=== PATIENT | male | born 1960 | race Two or more races ===

== ENCOUNTER 2017-04-20 21:34 | Emergency (ER) | payer MEDICAID | END 2017-04-20 22:00 | disposition left against medical advice (07) | LOC: ER 21:35 | DX: M79.89 Other specified soft tissue disorders (principal); E11.9 Type 2 diabetes mellitus without complications; Z53.21 Procedure and treatment not carried out due to patient leaving prior to being seen by health care provider ==

== ENCOUNTER 2017-06-14 22:23 | Inpatient (IN) | payer MEDICAID ==
[~2017-06-14] VITALS: Ht 167.6 cm; Wt 99.8 kg
[2017-06-14 23:27] LABS: BASOPHILS % 1.2 % (0.0-2.0); EOSINOPHILS % 6.7 % (0.0-5.0); HEMOGLOBIN. 15.6 g/dL (14.0-18.0); LYMPHOCYTES % 22.6 % (20.0-50.0); MEAN CORPUSCULAR VOLUME 95.2 fL (80.0-94.0); MONOCYTES % 11.7 % (2.0-8.0); NEUTROPHILS % 57.8 % (40.0-76.0); PLATELET 238 x1000/uL (130-400); RED BLOOD CELL COUNT 4.73 mill/uL (4.7-6.1); RED CELL DISTRIBUTION WIDTH 15.9 % (11.6-14.6)
[2017-06-14 23:36] LABS: INR 1.1; PROTHROMBIN TIME 11.4 sec (9.4-11.6)
[2017-06-14 23:39] LABS: CARBON DIOXIDE 29 mEq/L (21-32); CHLORIDE 106 mEq/L (98-107)
[2017-06-14] MEDS ORDERED: DEXTROSE 10% WATER 500 ML IV ONE (23:45)
[2017-06-15] MEDS ORDERED: DEXTROSE 50% WATER 50ML SYRINGE IV ONE (00:45)
[2017-06-15] MEDS ORDERED: KCL 10MEQ/50ML PREMIX 100 ML IV SCH (01:00)
[2017-06-15] MEDS ORDERED: POTASSIUM CHLORIDE 20MEQ TABLET SR PO ONE (01:00)
[2017-06-15 01:02] LABS: CLARITY URINE CLEAR (CLEAR); COLOR URINE YELLOW (YELLOW); GLUCOSE URINE NEGATIVE (NEGATIVE); KETONES URINE NEGATIVE (NEGATIVE); LEUKOCYTE ESTERASE URINE NEGATIVE (NEGATIVE); NITRITE URINE NEGATIVE (NEGATIVE); OCCULT BLOOD URINE NEGATIVE (NEGATIVE); PH URINE 6.5 (4.5-8.0); PROTEIN URINE 1+ (NEGATIVE); SPECIFIC GRAVITY URINE 1.006 (1.005-1.030)
[2017-06-15 04:00] VITALS: BP 139/83
[2017-06-15 04:58] VITALS: BP 139/83
[2017-06-15] MEDS ORDERED: DOCU250C69 PO (06:12)
[2017-06-15] MEDS ORDERED: SIMV20TA6 PO (06:12)
[2017-06-15] MEDS ORDERED: BUPR100T6 PO (06:12)
[2017-06-15] MEDS ORDERED: DICLOFENAC PO (06:12)
[2017-06-15] MEDS ORDERED: FAMO20TA8 PO (06:12)
[2017-06-15] MEDS ORDERED: METF500T4 PO (06:12)
[2017-06-15] MEDS ORDERED: APIX5TAB PO ×2 (06:12→17:40)
[2017-06-15] MEDS ORDERED: GLIP10TA10 PO (06:12)
[2017-06-15] MEDS ORDERED: LOSA25TA12 PO (06:12)
[2017-06-15 07:41] VITALS: BP 136/80
[2017-06-15] MEDS ORDERED: INFLUENZA VIRUS VACCINE 0.5ML SYR IM ONE (09:00)
[2017-06-15] MEDS ORDERED: DEXTROSE 50% WATER 50ML SYRINGE IV PRN (11:15)
[2017-06-15 11:53] VITALS: BP 135/68
[2017-06-15] MEDS: BLOOD SUGAR DIAGNOSTIC STRIP TEST SCH ×3 (12:10→20:47)
[2017-06-15] MEDS: INSULIN LISPRO 100 UNITS/ML SUBCUT SCH ×3 (12:40→20:49)
[2017-06-15 13:06] LABS: CARBON DIOXIDE 28 mEq/L (21-32); CHLORIDE 107 mEq/L (98-107); CREATINE KINASE 93 IU/L (39-308); TROPONIN I 0.14 ng/mL (0.00-0.04)
[2017-06-15 13:11] LABS: CREATINE KINASE MB FRACTION 2.1 ng/mL (0.5-3.6)
[2017-06-15] MEDS: DEXT 5%/0.45% NACL 1000ML 1,000 ML IV SCH (13:41)
[2017-06-15] MEDS: BUPROPION HCL 100MG TABLET PO SCH ×2 (13:49→16:38)
[2017-06-15] MEDS: LOSARTAN POTASSIUM 25 MG TABLET PO SCH (13:49)
[2017-06-15 16:19] VITALS: BP 142/84
[2017-06-15] MEDS: FAMOTIDINE 20MG TABLET PO SCH (16:44)
[2017-06-15] MEDS: APIXABAN 5 MG TABLET PO SCH (18:36)
[2017-06-15 20:00] VITALS: BP 159/81
[2017-06-15 20:26] LABS: *AMPHETAMINES SCREEN URINE NEGATIVE (NEGATIVE); *BARBITURATES SCREEN URINE NEGATIVE (NEGATIVE); *BENZODIAZEPINES SCREEN URINE NEGATIVE (NEGATIVE); *COCAINE SCREEN URINE NEGATIVE (NEGATIVE); CANNABINOID URINE SCREEN PRESUMTIVE POSITIVE (NEGATIVE); METHADONE URINE SCREEN NEGATIVE (NEGATIVE); OPIATES URINE SCREEN NEGATIVE (NEGATIVE); PHENCYCLIDINE URINE SCREEN NEGATIVE (NEGATIVE)
[2017-06-15 20:41] LABS: CREATINE KINASE MB FRACTION 1.9 ng/mL (0.5-3.6); TROPONIN I 0.12 ng/mL (0.00-0.04)
[2017-06-16] VITALS (8 sets, daily range): BP systolic 138–157; BP diastolic 72–89
[2017-06-16] MEDS: DEXT 5%/0.45% NACL 1000ML 1,000 ML IV SCH ×2 (03:24→14:58)
[2017-06-16] MEDS: BLOOD SUGAR DIAGNOSTIC STRIP TEST SCH ×4 (06:43→21:00)
[2017-06-16] MEDS: INSULIN LISPRO 100 UNITS/ML SUBCUT SCH ×4 (06:46→22:16)
[2017-06-16] MEDS: APIXABAN 5 MG TABLET PO SCH ×2 (07:56→17:47)
[2017-06-16] MEDS ORDERED: APIXABAN 5 MG TABLET PO SCH (09:00)
[2017-06-16] MEDS: FAMOTIDINE 20MG TABLET PO SCH ×2 (09:03→17:47)
[2017-06-16] MEDS: BUPROPION HCL 100MG TABLET PO SCH ×3 (09:03→17:48)
[2017-06-16] MEDS: LOSARTAN POTASSIUM 25 MG TABLET PO SCH (09:03)
[2017-06-16] MEDS: METFORMIN HCL 500MG TABLET PO SCH (17:57)
[2017-06-17] VITALS: BP 138/82
[2017-06-17 04:38] VITALS: BP 151/86
[2017-06-17] MEDS: DEXT 5%/0.45% NACL 1000ML 1,000 ML IV SCH (05:47)
[2017-06-17] MEDS: INSULIN LISPRO 100 UNITS/ML SUBCUT SCH ×2 (05:55→12:07)
[2017-06-17] MEDS: BLOOD SUGAR DIAGNOSTIC STRIP TEST SCH ×2 (05:55→11:44)
[2017-06-17 06:35] LABS: BASOPHILS % 0.7 % (0.0-2.0); EOSINOPHILS % 8.9 % (0.0-5.0); HEMATOCRIT. 43.5 % (42.0-52.0); HEMOGLOBIN. 15.2 g/dL (14.0-18.0); LYMPHOCYTES % 24.2 % (20.0-50.0); MEAN CORPUSCULAR HEMOGLOBIN 33.5 pg (28.0-32.0); MEAN CORPUSCULAR VOLUME 95.9 fL (80.0-94.0); MEAN PLATELET VOLUME 7.8 fl (7.4-10.4); MONOCYTES % 9.8 % (2.0-8.0); NEUTROPHILS % 56.4 % (40.0-76.0); PLATELET 184 x1000/uL (130-400); RED BLOOD CELL COUNT 4.53 mill/uL (4.7-6.1); RED CELL DISTRIBUTION WIDTH 15.6 % (11.6-14.6)
[2017-06-17 07:26] LABS: CARBON DIOXIDE 26 mEq/L (21-32); CHLORIDE 105 mEq/L (98-107)
[2017-06-17 07:46] VITALS: BP 154/90
[2017-06-17] MEDS: FAMOTIDINE 20MG TABLET PO SCH (08:52)
[2017-06-17] MEDS: BUPROPION HCL 100MG TABLET PO SCH ×2 (08:53→14:08)
[2017-06-17] MEDS: LOSARTAN POTASSIUM 25 MG TABLET PO SCH (08:53)
[2017-06-17] MEDS: METFORMIN HCL 500MG TABLET PO SCH (08:53)
[2017-06-17] MEDS: APIXABAN 5 MG TABLET PO SCH (08:53)
[2017-06-17] MEDS ORDERED: CLONIDINE 0.1MG TABLET PO SCH (11:45)
[2017-06-17 11:50] VITALS: BP 164/80
[2017-06-17 14:02] VITALS: BP 117/65
[2017-06-17 16:00] VITALS: BP 123/70
[2017-06-18] MEDS ORDERED: LOSARTAN POTASSIUM 50 MG TABLET PO SCH (09:00)
== END 2017-06-17 16:40 | disposition left against medical advice (07) | DRG 199 ==
LOC: ER 22:37 → 8WST 06-15 00:52 → ENRESERV 06-15 02:01
PROVIDERS: ADMIT Internal Medicine; ATTEND Internal Medicine
DX: I16.0 Hypertensive urgency (principal); E11.649 Type 2 diabetes mellitus with hypoglycemia without coma; I82.412 Acute embolism and thrombosis of left femoral vein; I69.354 Hemiplegia and hemiparesis following cerebral infarction affecting left non-dominant side; I10 Essential (primary) hypertension; J44.9 Chronic obstructive pulmonary disease, unspecified; E78.5 Hyperlipidemia, unspecified; E87.6 Hypokalemia; E78.00 Pure hypercholesterolemia, unspecified; F12.90 Cannabis use, unspecified, uncomplicated; F17.210 Nicotine dependence, cigarettes, uncomplicated; I82.432 Acute embolism and thrombosis of left popliteal vein; Z53.21 Procedure and treatment not carried out due to patient leaving prior to being seen by health care provider; Z79.01 Long term (current) use of anticoagulants; Z79.4 Long term (current) use of insulin; I25.2 Old myocardial infarction
CPT/HCPCS: 36415; 80048; 80053; 80305; 81001; 82533; 82550; 82553; 82962; 84443; 84484; 85025; 85610; 90686; 93005; 93970; 93971; 96361; 96374; 99291; J1815; J3480; J3490

== ENCOUNTER 2018-07-09 18:19 | Emergency (ER) | payer MEDICAID, MEDICARE, OTHER ==
[~2018-07-09] VITALS: Ht 175.3 cm; Wt 86.0 kg
[~2018-07-09 18:19] MED LIST: APIX5TAB PO; BUPR100T6 PO; DICLOFENAC PO; DOCU250C69 PO; FAMO20TA8 PO; GLIP10TA10 PO; LOSA25TA12 PO; METF-414 PO; SIMV20TA6 PO
[2018-07-09] MEDS ORDERED: ONDANSETRON 4MG ODT PO ONE (20:00)
[2018-07-09] MEDS ORDERED: KETOROLAC 60MG/2ML VIAL IM ONE (20:00)
[2018-07-09] MEDS ORDERED: BACITRACIN ZINC OINT UDPKT TOP ONE (20:00)
[2018-07-09] MEDS ORDERED: TETANUS, DIPHTHERIA, PERTUSSIS VAC/PF 0.5ML (>7YR OLD) IM ONE (20:00)
[2018-07-09] MEDS ORDERED: MORPHINE SULFATE 10 MG/ML CPJ IM ONE (20:00)
[2018-07-10 01:15] VITALS: BP 119/72
== END 2018-07-10 01:41 | disposition home or self-care (01) ==
LOC: ER 18:19
DX: S39.012A Strain of muscle, fascia and tendon of lower back, initial encounter (principal); S80.02XA Contusion of left knee, initial encounter; S60.222A Contusion of left hand, initial encounter; S60.419A Abrasion of unspecified finger, initial encounter; V00.811A Fall from moving wheelchair (powered), initial encounter; Y93.89 Activity, other specified; Y92.521 Bus station as the place of occurrence of the external cause; E11.9 Type 2 diabetes mellitus without complications; I69.354 Hemiplegia and hemiparesis following cerebral infarction affecting left non-dominant side; G40.909 Epilepsy, unspecified, not intractable, without status epilepticus; Z23 Encounter for immunization
CPT/HCPCS: 71045; 72100; 73130; 73560; 90471; 90715; 96372; 99283; J1885; J2270; Q0162

== ENCOUNTER 2019-03-09 06:53 | Emergency (ER) | payer MEDICARE ==
[~2019-03-09] VITALS: Ht 170.2 cm; Wt 82.0 kg
[~2019-03-09 06:53] MED LIST changes: -LOSA25TA12 PO; +LOSA25TA26 PO
[2019-03-09 08:19] LABS: BASOPHILS % 0.9 % (0.0-2.0); EOSINOPHILS % 6.2 % (0.0-5.0); HEMATOCRIT. 48.5 % (42.0-52.0); HEMOGLOBIN. 16.5 g/dL (14.0-18.0); LYMPHOCYTES % 11.6 % (20.0-50.0); MEAN CORPUSCULAR HEMOGLOBIN 33.4 pg (28.0-32.0); MEAN CORPUSCULAR VOLUME 98.1 fL (80.0-94.0); MEAN PLATELET VOLUME 7.4 fl (7.4-10.4); MONOCYTES % 10.4 % (2.0-8.0); NEUTROPHILS % 70.9 % (40.0-76.0); PLATELET 234 x1000/uL (130-400); RED BLOOD CELL COUNT 4.95 mill/uL (4.7-6.1); RED CELL DISTRIBUTION WIDTH 14.3 % (11.6-14.6)
[2019-03-09 08:20] LABS: CHLORIDE 107 mEq/L (98-107)
[2019-03-09 10:08] VITALS: BP 160/80
== END 2019-03-09 10:45 | disposition home or self-care (01) ==
LOC: ER 06:53
DX: E11.649 Type 2 diabetes mellitus with hypoglycemia without coma (principal); Z86.73 Personal history of transient ischemic attack (TIA), and cerebral infarction without residual deficits; Z79.899 Other long term (current) drug therapy
CPT/HCPCS: 36415; 71045; 80053; 82962; 84484; 85025; 93005; 99284; Z7610

== ENCOUNTER 2019-06-10 11:03 | Emergency (ER) | payer MEDICARE ==
[~2019-06-10] VITALS: Ht 170.2 cm; Wt 95.0 kg
[2019-06-10] MEDS ORDERED: FAMOTIDINE 20MG/2ML VIAL IV STA (11:47)
[2019-06-10] MEDS ORDERED: ONDANSETRON HCL 4MG/2ML INJ IV STA (11:47)
[2019-06-10] MEDS ORDERED: MORPHINE SULFATE 4 MG/ML CPJ (NOT FOR IM USE) IV STA (11:47)
[2019-06-10] MEDS ORDERED: SODIUM CHLORIDE 0.9% 1,000 ML IV ONE (11:47)
[2019-06-10 12:33] LABS: HEMATOCRIT. 51.1 % (42.0-52.0); HEMOGLOBIN. 17.8 g/dL (14.0-18.0); MEAN CORPUSCULAR HEMOGLOBIN 33.2 pg (28.0-32.0); MEAN CORPUSCULAR VOLUME 95.4 fL (80.0-94.0); PLATELET 267 x1000/uL (130-400); RED BLOOD CELL COUNT 5.35 mill/uL (4.7-6.1); RED CELL DISTRIBUTION WIDTH 13.7 % (11.6-14.6)
[2019-06-10 12:36] LABS: INR 1.1; PROTHROMBIN TIME 11.4 sec (9.6-11.0)
[2019-06-10 12:37] LABS: CHLORIDE 97 mEq/L (98-107)
[2019-06-10 12:51] LABS: CLARITY URINE CLEAR (CLEAR); COLOR URINE ORANGE (YELLOW); KETONES URINE 1+ (NEGATIVE); LEUKOCYTE ESTERASE URINE TRACE (NEGATIVE); NITRITE URINE NEGATIVE (NEGATIVE); OCCULT BLOOD URINE 1+ (NEGATIVE); PROTEIN URINE 3+ (NEGATIVE); SPECIFIC GRAVITY URINE 1.025 (1.005-1.030)
[2019-06-10] MEDS ORDERED: PIPERACILLIN/TAZ 3.375G PREMIX 50 ML IV ONE (13:30)
[2019-06-10 13:31] LABS: PLATELET ESTIMATE NORMAL
[2019-06-10] MEDS ORDERED: MORPHINE SULFATE 2 MG/ML CPJ (NOT FOR IM USE) IV ONE (14:30)
[2019-06-10] MEDS ORDERED: IOHEXOL-300 100 ML BOTTLE ONE (14:52)
[2019-06-10] MEDS ORDERED: PIPERACILLIN/TAZOBACTAM 3.375 G in DEXT 5% WATER 100 ML IV SCH (15:00)
[2019-06-10] MEDS ORDERED: HYDRALAZINE 20MG/ML VIAL IV ONE (16:15)
[2019-06-10 21:31] VITALS: BP 15/85
== END 2019-06-10 22:00 | disposition home or self-care (01) ==
LOC: ER 11:03 → EDBEDREQ 14:00 → CANBEDREQ 17:38 → ER 22:00 → SUPCPDRO 06-11 10:37
DX: A41.9 Sepsis, unspecified organism (principal); K81.0 Acute cholecystitis; E87.1 Hypo-osmolality and hyponatremia; E87.6 Hypokalemia; E11.9 Type 2 diabetes mellitus without complications; I10 Essential (primary) hypertension; E66.9 Obesity, unspecified; Z68.32 Body mass index [BMI] 32.0-32.9, adult; I69.354 Hemiplegia and hemiparesis following cerebral infarction affecting left non-dominant side; Z86.718 Personal history of other venous thrombosis and embolism; Z79.01 Long term (current) use of anticoagulants; Z79.899 Other long term (current) drug therapy
CPT/HCPCS: 36415; 71045; 74177; 76705; 80053; 81003; 83605; 83690; 85025; 85610; 93005; 96361; 96365; 96366; 96375; 99291; J0360; J2270; J2405; J2543; J3490; J7030; Q9967; Z7610

== ENCOUNTER 2019-07-24 20:27 | Emergency (ER) | payer MEDICARE ==
[~2019-07-24] VITALS: Ht 167.6 cm; Wt 73.0 kg
[2019-07-24] MEDS ORDERED: IBUPROFEN 600MG TABLET PO ONE (21:30)
[2019-07-24 22:49] LABS: BASOPHILS % 0.8 % (0.0-2.0); EOSINOPHILS % 11.9 % (0.0-5.0); HEMATOCRIT. 44.7 % (42.0-52.0); HEMOGLOBIN. 15.2 g/dL (14.0-18.0); LYMPHOCYTES % 26.8 % (20.0-50.0); MEAN CORPUSCULAR HEMOGLOBIN 32.8 pg (28.0-32.0); MEAN CORPUSCULAR VOLUME 96.6 fL (80.0-94.0); MEAN PLATELET VOLUME 7.1 fl (7.4-10.4); MONOCYTES % 6.8 % (2.0-8.0); NEUTROPHILS % 53.7 % (40.0-76.0); PLATELET 217 x1000/uL (130-400); RED BLOOD CELL COUNT 4.63 mill/uL (4.7-6.1); RED CELL DISTRIBUTION WIDTH 15.7 % (11.6-14.6)
[2019-07-24 22:54] LABS: CHLORIDE 101 mEq/L (98-107)
[2019-07-24 23:06] LABS: ETHANOL BLOOD 286 mg/dL
[2019-07-24] MEDS ORDERED: HYDROCODONE/ACETAMINOPHEN 5/325MG TABLET PO ONE (23:30)
[2019-07-25 00:40] VITALS: BP 131/71
== END 2019-07-25 01:00 | disposition home or self-care (01) ==
LOC: ER 20:27
DX: S43.102A Unspecified dislocation of left acromioclavicular joint, initial encounter (principal); W05.0XXA Fall from non-moving wheelchair, initial encounter; Y93.89 Activity, other specified; Y92.098 Other place in other non-institutional residence as the place of occurrence of the external cause; F10.129 Alcohol abuse with intoxication, unspecified; Y90.8 Blood alcohol level of 240 mg/100 ml or more
CPT/HCPCS: 36415; 71045; 73030; 80053; 80320; 85025; 99284; Z7610; G0480

== ENCOUNTER 2020-12-11 14:44 | Emergency (ER) | payer MEDICARE ==
[~2020-12-11] VITALS: Ht 170.2 cm; Wt 70.0 kg
[~2020-12-11 14:44] MED LIST changes: +SIMV-43 PO; -SIMV20TA6 PO
[2020-12-11] MEDS ORDERED: ACETAMINOPHEN WITH CODEINE 300/30MG TABLET PO NR (15:45)
[2020-12-11] MEDS ORDERED: MORPHINE SULFATE 10 MG/ML CPJ IM ONE ×2 (17:30→21:45)
[2020-12-11] MEDS ORDERED: MORPHINE SULFATE 4 MG/ML CPJ (NOT FOR IM USE) IV NR (17:45)
[2020-12-11 17:48] LABS: HEMATOCRIT 44.7 % (42.0-52.0); HEMOGLOBIN 15.5 g/dL (14.0-18.0); MEAN CORPUSCULAR HEMOGLOBIN 34.1 pg (28.0-32.0); MEAN CORPUSCULAR VOLUME 98.1 fL (80.0-94.0); PLATELET 212 x1000/uL (130-400); RED BLOOD CELL COUNT 4.56 mill/uL (4.7-6.1); RED CELL DISTRIBUTION WIDTH 13.8 % (11.6-14.6)
[2020-12-11 17:56] LABS: CHLORIDE 101 mEq/L (98-107)
[2020-12-11 18:06] LABS: CREATINE KINASE 110 IU/L (39-308)
[2020-12-11] MEDS ORDERED: BUPIVACAINE HCL/PF 0.25% (2.5MG/ML) 10ML INFIL ONE (20:15)
[2020-12-12 03:50] VITALS: BP 133/85
[2020-12-12 04:01] LABS: CLARITY URINE CLOUDY (CLEAR); COLOR URINE ORANGE (YELLOW); KETONES URINE TRACE (NEGATIVE); LEUKOCYTE ESTERASE URINE 3+ (NEGATIVE); NITRITE URINE POSITIVE (NEGATIVE); OCCULT BLOOD URINE 2+ (NEGATIVE); PROTEIN URINE 1+ (NEGATIVE); SPECIFIC GRAVITY URINE 1.016 (1.005-1.030)
== END 2020-12-12 04:15 | disposition short-term general hospital (02) ==
LOC: ER 14:44
DX: S42.392A Other fracture of shaft of left humerus, initial encounter for closed fracture (principal); S46.812A Strain of other muscles, fascia and tendons at shoulder and upper arm level, left arm, initial encounter; S20.212A Contusion of left front wall of thorax, initial encounter; S50.02XA Contusion of left elbow, initial encounter; W22.8XXA Striking against or struck by other objects, initial encounter; W01.198A Fall on same level from slipping, tripping and stumbling with subsequent striking against other object, initial encounter; Y93.89 Activity, other specified; Y92.015 Private garage of single-family (private) house as the place of occurrence of the external cause; I10 Essential (primary) hypertension; E11.9 Type 2 diabetes mellitus without complications; I69.30 Unspecified sequelae of cerebral infarction; Z79.01 Long term (current) use of anticoagulants
CPT/HCPCS: 29105; 36415; 70450; 71101; 73030; 73060; 73080; 80053; 81003; 82550; 85027; 87077; 87086; 87186; 96374; 99285; J2270; J3490

== ENCOUNTER 2023-05-23 13:13 | Emergency (ER) | payer MEDICAID, MEDICARE ==
[~2023-05-23] VITALS: Ht 167.6 cm; Wt 64.0 kg
[~2023-05-23 13:13] MED LIST changes: +BUPR-113 PO; -BUPR100T6 PO
[2023-05-23 13:19] VITALS: BP 110/63; PULSE 91; RESP 16; TEMP 98.4; O2SAT 100
[2023-05-23] MEDS ORDERED: TETANUS, DIPHTHERIA, PERTUSSIS VAC/PF 0.5ML (>10YR OLD) IM ONE ×2 (15:30→21:30)
[2023-05-23 16:17] LABS: BASOPHILS % 0.6 % (0.0-2.0); EOSINOPHILS % 7.5 % (0.0-5.0); HEMATOCRIT. 42.3 % (42.0-52.0); HEMOGLOBIN. 14.2 g/dL (14.0-18.0); LYMPHOCYTES % 11.8 % (20.0-50.0); MEAN CORPUSCULAR HEMOGLOBIN 32.2 pg (28.0-32.0); MEAN CORPUSCULAR HGB CONC 33.6 g/dL (31.0-37.0); MEAN CORPUSCULAR VOLUME 95.7 fL (80.0-94.0); MONOCYTES % 10.3 % (2.0-8.0); NEUTROPHILS % 69.8 % (40.0-76.0); PLATELET 281 x1000/uL (130-400); RED BLOOD CELL COUNT 4.41 mill/uL (4.7-6.1); RED CELL DISTRIBUTION WIDTH 14.2 % (11.6-14.6); WHITE BLOOD COUNT 11.2 x1000/uL (4.5-11.0)
[2023-05-23 16:18] LABS: CHLORIDE 101 mEq/L (98-107); INDEX HEMOLYSI 1 (1-3); INDEX ICTERIC 1 (1-4); INDEX LIPEMIC 1 (1-3); POTASSIUM 4.4 mEq/L (3.5-5.1); SODIUM 134 mEq/L (136-145)
[2023-05-23 16:27] LABS: ALANINE AMINOTRANSFERASE 28 IU/L (13-61); ALBUMIN 2.6 g/dL (3.4-5.0); ASPARTATE AMINOTRANSFERASE 48 IU/L (15-37); BILIRUBIN TOTAL 1.2 mg/dL (0.1-1.0); CALCIUM 8.2 mg/dL (8.5-10.1); CARBON DIOXIDE 25 mEq/L (21-32); CREATINE KINASE 192 IU/L (39-308); CREATININE 0.8 mg/dL (0.6-1.3); ETHANOL BLOOD < 10 mg/dL (<10); GLUCOSE 99 mg/dL (70-105); PROTEIN TOTAL 7.1 g/dL (6.0-8.3); UREA NITROGEN BLOOD 7 mg/dL (7-21)
== END 2023-05-23 20:49 | disposition home or self-care (01) ==
LOC: ER 13:13
DX: S00.81XA Abrasion of other part of head, initial encounter (principal); E11.9 Type 2 diabetes mellitus without complications; I10 Essential (primary) hypertension; Z86.73 Personal history of transient ischemic attack (TIA), and cerebral infarction without residual deficits; Z79.899 Other long term (current) drug therapy; W07.XXXA Fall from chair, initial encounter; Y93.89 Activity, other specified; Y92.89 Other specified places as the place of occurrence of the external cause; Y99.8 Other external cause status
CPT/HCPCS: 80053; 80320; 82550; 85025; 36415; 71045; 70450; 70486; 90715; 90471; 99285; Z7610; G0480

== ENCOUNTER 2023-11-29 12:15 | Inpatient (IN) | payer MEDICAID ==
[~2023-11-29] VITALS: Ht 167.6 cm; Wt 81.6 kg
[~2023-11-29 12:15] MED LIST changes: +ALBU2.5V13 NEB; -BUPR-113 PO; +BUPR100T13 PO; -DICLOFENAC PO; -GLIP10TA10 PO; +LEVO750T68 MT; -LOSA25TA26 PO; +LOSA50TA41 PO; +MIRT-89 PO
[2023-11-29] MEDS: SODIUM CHLORIDE 0.9% 1,000 ML IV ONE (12:59)
[2023-11-29] MEDS: PIPERACILLIN/TAZO 3.375G/50ML 50 ML IV ONE (13:00)
[2023-11-29 13:04] LABS: BASOPHILS % 0.6 % (0.0-2.0); EOSINOPHILS % 10.7 % (0.0-5.0); HEMATOCRIT. 41.4 % (42.0-52.0); HEMOGLOBIN. 14.1 g/dL (14.0-18.0); LYMPHOCYTES % 18.6 % (20.0-50.0); MEAN CORPUSCULAR HEMOGLOBIN 32.1 pg (28.0-32.0); MEAN CORPUSCULAR VOLUME 94.3 fL (80.0-94.0); MONOCYTES % 10.8 % (2.0-8.0); NEUTROPHILS % 59.3 % (40.0-76.0); PLATELET 321 x1000/uL (130-400); RED BLOOD CELL COUNT 4.38 mill/uL (4.7-6.1); RED CELL DISTRIBUTION WIDTH 14.1 % (11.6-14.6); WHITE BLOOD COUNT 8.8 x1000/uL (4.5-11.0)
[2023-11-29 13:19] LABS: ALANINE AMINOTRANSFERASE 15 IU/L (10-49); ALBUMIN 3.8 g/dL (3.2-4.8); ASPARTATE AMINOTRANSFERASE 38 IU/L (<34); BILIRUBIN TOTAL 0.6 mg/dL (0.1-1.0); CALCIUM 8.8 mg/dL (8.7-10.4); CARBON DIOXIDE 28 mEq/L (21-32); CHLORIDE 104 mEq/L (98-107); CREATININE 1.3 mg/dL (0.6-1.3); GLUCOSE 148 mg/dL (70-105); POTASSIUM 4.6 mEq/L (3.5-5.1); PROTEIN TOTAL 7.5 g/dL (6.0-8.3); SODIUM 135 mEq/L (136-145); UREA NITROGEN BLOOD 11 mg/dL (9-23)
[2023-11-29 20:00] VITALS: BP 160/78; PULSE 109; RESP 20; TEMP 94.6
[2023-11-29] MEDS ORDERED: CLONIDINE 0.1MG TABLET PO PRN (20:15)
[2023-11-29] MEDS ORDERED: DEXTROSE 50% WATER 50ML SYRINGE IV PRN (20:15)
[2023-11-29] MEDS ORDERED: VANCOMYCIN 1G PREMIX 200 ML IV SCH (20:15)
[2023-11-29] MEDS ORDERED: ONDANSETRON HCL 4MG/2ML INJ IV PRN (20:15)
[2023-11-29] MEDS ORDERED: GUAIFENESIN 200MG/10ML SUGAR FREE UDC PO PRN (20:15)
[2023-11-29] MEDS ORDERED: ACETAMINOPHEN 325MG TABLET PO PRN (20:15)
[2023-11-29] MEDS ORDERED: MAGNESIUM/ALUMINUM HYDROXIDE/SIMETHICONE 30ML UDC PO PRN (20:15)
[2023-11-29] MEDS ORDERED: IPRATROPIUM/ALBUTEROL 0.5-3(2.5)MG/3ML NEB NEB PRN (20:15)
[2023-11-29] MEDS: INSULIN LISPRO 100 UNITS/ML SUBCUT SCH (21:00)
[2023-11-29] MEDS: VANCOMYCIN 1.5GM/250ML IV SCH (21:00)
[2023-11-29] MEDS: BLOOD SUGAR DIAGNOSTIC STRIP TEST SCH (21:48)
[2023-11-29] MEDS: APIXABAN 5 MG TABLET PO SCH (21:48)
[2023-11-29] MEDS: ATORVASTATIN CALCIUM 20MG TABLET PO SCH (21:48)
[2023-11-29] MEDS: FAMOTIDINE 20MG TABLET PO SCH (21:48)
[2023-11-29] MEDS: MIRTAZAPINE 15MG TABLET PO SCH (21:48)
[2023-11-29] MEDS: SODIUM CHLORIDE 0.9% INJ 3ML FLUSH IVF SCH (22:06)
[2023-11-29] MEDS: BUPROPION HCL 75MG TABLET PO SCH (22:24)
[2023-11-29] MEDS: PIPERACILLIN/TAZO 3.375G/50ML 50 ML IV SCH (22:24)
[2023-11-29 23:34] VITALS: BP 160/78; PULSE 109; RESP 20; TEMP 94.6
[2023-11-30] VITALS: BP 136/66; PULSE 86; RESP 18; TEMP 97.7
[2023-11-30 08:00] VITALS: BP 137/70; PULSE 64; RESP 20; TEMP 98.5
[2023-11-30] MEDS: DOCUSATE SODIUM 250MG CAPSULE PO SCH (08:52)
[2023-11-30] MEDS: LOSARTAN 50 MG TABLET PO SCH (08:53)
[2023-11-30] MEDS: VANCOMYCIN 750MG/150ML IV SCH (10:00)
[2023-11-30 12:00] VITALS: BP 130/64; PULSE 68; RESP 20; TEMP 98.4
[2023-11-30] MEDS: SODIUM HYPOCHLORITE SOLUTION (0.5%)FULL STRENGTH TOP SCH (13:00)
[2023-11-30 16:00] VITALS: BP 144/70; PULSE 61; RESP 20; TEMP 97.7
[2023-11-30 20:00] VITALS: BP 120/60; PULSE 68; RESP 18; TEMP 98.6
[2023-12-01] VITALS: BP 96/50; PULSE 76; RESP 18; TEMP 98.6
[2023-12-01 04:00] VITALS: BP 104/53; PULSE 65; RESP 18; TEMP 98.1
[2023-12-01 07:24] LABS: CALCIUM 8.4 mg/dL (8.7-10.4); CARBON DIOXIDE 23 mEq/L (21-32); CHLORIDE 112 mEq/L (98-107); CREATINE KINASE 21 IU/L (46-171); CREATININE 1.1 mg/dL (0.6-1.3); GLUCOSE 112 mg/dL (70-105); POTASSIUM 3.6 mEq/L (3.5-5.1); SODIUM 140 mEq/L (136-145); UREA NITROGEN BLOOD 13 mg/dL (9-23)
[2023-12-01 08:00] VITALS: BP 136/62; PULSE 62; RESP 20; TEMP 98.2
[2023-12-01 12:01] VITALS: BP 127/62; PULSE 62; RESP 18; TEMP 98
[2023-12-01 16:25] VITALS: BP 147/67; PULSE 62; RESP 18; TEMP 98.1
[2023-12-01 20:00] VITALS: BP 120/69; PULSE 69; RESP 18; TEMP 97.3
[2023-12-01] MEDS: ZOLPIDEM TARTRATE 5MG TABLET PO PRN (22:11)
[2023-12-02] VITALS: BP 137/67; PULSE 64; RESP 19; TEMP 98
[2023-12-02 04:00] VITALS: BP 136/62; PULSE 68; RESP 19; TEMP 97.4
[2023-12-02 08:02] VITALS: BP 119/63; PULSE 60; RESP 18; TEMP 98.1
[2023-12-02] MEDS ORDERED: LIDOCAINE HCL 1% 10 MG/ML 10ML VIAL ONE (08:08)
[2023-12-02] MEDS ORDERED: POLYMYXIN B SULFATE 500000 UNITS/VIAL ONE (08:08)
[2023-12-02] MEDS ORDERED: BUPIVACAINE HCL/PF 0.5% (5MG/ML) 10ML ONE (08:08)
[2023-12-02] MEDS ORDERED: VANCOMYCIN HCL 1 GM/VIAL ONE (08:43)
[2023-12-02] MEDS ORDERED: MIDAZOLAM HCL 2 MG/2 ML VIAL ONE (09:51)
[2023-12-02] MEDS ORDERED: PROPOFOL 200MG/20ML VIAL IV ONE (09:51)
[2023-12-02] MEDS ORDERED: FENTANYL CITRATE/PF 50MCG/ML 2ML VIAL ONE (09:51)
[2023-12-02] MEDS ORDERED: HYDROCODONE/ACETAMINOPHEN 10/325MG TABLET PO PRN (10:00)
[2023-12-02] MEDS ORDERED: NALOXONE HCL 0.4MG/ML VIAL IV PRN (10:00)
[2023-12-02] MEDS ORDERED: HYDROCODONE/ACETAMINOPHEN 5/325MG TABLET PO PRN (10:00)
[2023-12-02] MEDS ORDERED: MEPERIDINE HCL/PF 25MG/ML CPJ IV PRN (10:30)
[2023-12-02] MEDS ORDERED: ONDANSETRON HCL 4MG/2ML INJ IV PRN (10:30)
[2023-12-02] MEDS ORDERED: HYDROMORPHONE HCL/PF 2MG/ML CPJ IV PRN (10:30)
[2023-12-02] MEDS ORDERED: LABETALOL 5MG/ML SYR 20 MG/4 ML SYRINGE IV PRN (10:30)
[2023-12-02 13:00] VITALS: BP 125/38; PULSE 68; RESP 18; TEMP 98.2
[2023-12-02 16:00] VITALS: BP 128/43; PULSE 69; RESP 18; TEMP 98.1
[2023-12-02 20:00] VITALS: BP 119/62; PULSE 71; RESP 18; TEMP 97.7
[2023-12-03] VITALS: BP 112/48; PULSE 65; RESP 20; TEMP 97.9
[2023-12-03 04:00] VITALS: BP 100/51; PULSE 63; RESP 20; TEMP 97.9
[2023-12-03 08:00] VITALS: BP 118/67; PULSE 63; RESP 20; TEMP 98.2
[2023-12-03 12:00] VITALS: BP 120/70; PULSE 70; RESP 20; TEMP 98.4
[2023-12-03 16:00] VITALS: BP 123/63; PULSE 64; RESP 21; TEMP 98.2
[2023-12-03 20:00] VITALS: BP 124/62; PULSE 78; RESP 20; TEMP 98
[2023-12-04] VITALS: BP 112/55; PULSE 65; RESP 20; TEMP 97.8
[2023-12-04] MEDS: CEFAZOLIN 2GM/100ML 100 ML IV SCH (02:59)
[2023-12-04 04:00] VITALS: BP 118/65; PULSE 67; RESP 20; TEMP 97.9
[2023-12-04 07:29] LABS: CALCIUM 8.5 mg/dL (8.7-10.4); CARBON DIOXIDE 23 mEq/L (21-32); CHLORIDE 111 mEq/L (98-107); CREATININE 1.3 mg/dL (0.6-1.3); GLUCOSE 78 mg/dL (70-105); POTASSIUM 3.5 mEq/L (3.5-5.1); SODIUM 139 mEq/L (136-145); UREA NITROGEN BLOOD 11 mg/dL (9-23)
[2023-12-04 08:00] VITALS: BP 143/67; PULSE 63; RESP 18; TEMP 98
[2023-12-04 12:00] VITALS: BP 112/56; PULSE 65; RESP 18; TEMP 97
[2023-12-04 16:00] VITALS: BP 146/69; PULSE 62; RESP 20; TEMP 98
[2023-12-04 20:00] VITALS: BP_SYST 152; BP_SYST 166; BP_DIAS 62; BP_DIAS 85; PULSE 64; PULSE 92; RESP 18; TEMP 97.2; TEMP 97.4
[2023-12-05 04:00] VITALS: BP 140/7; PULSE 62; RESP 16; TEMP 97.9
[2023-12-05 08:00] VITALS: BP 153/72; PULSE 61; RESP 19; TEMP 97.7
[2023-12-05 12:00] VITALS: BP 138/51; PULSE 63; RESP 20; TEMP 98.1
[2023-12-05 16:00] VITALS: BP 153/80; PULSE 67; RESP 20; TEMP 98.1
[2023-12-05 20:00] VITALS: BP 152/66; PULSE 97; RESP 18; TEMP 97.5
[2023-12-05] MEDS: BUPROPION HCL 150MG SR TABLET PO SCH (20:47)
[2023-12-06] VITALS: BP 129/52; PULSE 92; RESP 18; TEMP 95.4
[2023-12-06 04:00] VITALS: BP 152/46; PULSE 81; RESP 18; TEMP 97.9
[2023-12-06 08:00] VITALS: BP_SYST 147; BP_SYST 175; BP_DIAS 75; BP_DIAS 80; PULSE 77; PULSE 94; RESP 20; RESP 21; TEMP 97.3; TEMP 98.6
[2023-12-06 12:00] VITALS: BP 140/67; PULSE 87; RESP 20; TEMP 98.7
[2023-12-06 16:00] VITALS: BP 146/67; PULSE 76; RESP 18; TEMP 98.5
[2023-12-06 20:00] VITALS: BP 159/40; PULSE 87; RESP 18; TEMP 97.2
[2023-12-07] VITALS: BP 128/64; PULSE 85; RESP 18; TEMP 97.2
[2023-12-07 04:00] VITALS: BP 143/37; PULSE 81; RESP 18; TEMP 97.2
[2023-12-07 08:00] VITALS: BP 150/64; PULSE 65; RESP 18; TEMP 97.7
[2023-12-07 12:00] VITALS: BP 148/70; PULSE 66; RESP 18; TEMP 97.5
[2023-12-07 16:00] VITALS: BP 147/74; PULSE 65; RESP 18; TEMP 97.6
[2023-12-07 20:00] VITALS: BP 144/73; PULSE 68; RESP 18; TEMP 97.9
[2023-12-08] VITALS: BP 110/57; PULSE 66; RESP 18; TEMP 97.7
[2023-12-08 04:00] VITALS: BP 105/53; PULSE 82; RESP 18; TEMP 97.8
[2023-12-08 08:00] VITALS: BP 125/49; PULSE 60; RESP 19; TEMP 97.7
[2023-12-08 12:00] VITALS: BP 125/62; PULSE 60; RESP 18; TEMP 97.3
[2023-12-08 16:00] VITALS: BP 113/62; PULSE 62; RESP 19; TEMP 98.1
[2023-12-08] MEDS: ACETAMINOPHEN 325MG TABLET PO PRN (19:30)
[2023-12-08 20:00] VITALS: BP 149/38; PULSE 67; RESP 18; TEMP 98.1
[2023-12-09] VITALS: BP 119/64; PULSE 65; RESP 18; TEMP 97.5
[2023-12-09 04:00] VITALS: BP 132/64; PULSE 62; RESP 18; TEMP 97.3
[2023-12-09 08:00] VITALS: BP 140/55; PULSE 60; RESP 20; TEMP 97.9
[2023-12-09 12:14] VITALS: BP 141/81; PULSE 58; RESP 18; TEMP 98.1
[2023-12-09 16:05] VITALS: BP 157/80; PULSE 67; RESP 18; TEMP 98
[2023-12-09 20:00] VITALS: BP 131/65; PULSE 66; RESP 16; TEMP 96.8
[2023-12-10 04:00] VITALS: BP 128/60; PULSE 52; RESP 16; TEMP 96.6
[2023-12-10 08:00] VITALS: BP 122/61; PULSE 64; RESP 18; TEMP 98
[2023-12-10 12:25] VITALS: BP 127/61; PULSE 65; RESP 20; TEMP 98
[2023-12-10 16:29] VITALS: BP 140/77; PULSE 66; RESP 18; TEMP 97.9
[2023-12-10 16:44] VITALS: BP 140/71; PULSE 66; TEMP 97.9; O2SAT 100
== END 2023-12-10 19:29 | disposition home health service (06) | DRG 314 ==
LOC: ER 13:49 → EDBEDREQ 15:58 → 6WST 17:07
PROVIDERS: ADMIT Internal Medicine; ATTEND Internal Medicine
PROC: 0Y6Q0Z3 Detachment at Left 1st Toe, Low, Open Approach (ICD-10-PCS; principal; 2023-12-02)
PROC: 0SQQ0ZZ Repair Left Toe Phalangeal Joint, Open Approach (ICD-10-PCS; 2023-12-02)
PROC: 0KBW0ZZ Excision of Left Foot Muscle, Open Approach (ICD-10-PCS; 2023-12-02)
DX: E11.69 Type 2 diabetes mellitus with other specified complication (principal); M86.172 Other acute osteomyelitis, left ankle and foot; I69.354 Hemiplegia and hemiparesis following cerebral infarction affecting left non-dominant side; L97.529 Non-pressure chronic ulcer of other part of left foot with unspecified severity; E11.51 Type 2 diabetes mellitus with diabetic peripheral angiopathy without gangrene; E11.621 Type 2 diabetes mellitus with foot ulcer; I10 Essential (primary) hypertension; L08.9 Local infection of the skin and subcutaneous tissue, unspecified; Z86.718 Personal history of other venous thrombosis and embolism; E78.00 Pure hypercholesterolemia, unspecified; M84.475A Pathological fracture, left foot, initial encounter for fracture; S90.415A Abrasion, left lesser toe(s), initial encounter; X58.XXXA Exposure to other specified factors, initial encounter; Y93.89 Activity, other specified; Y92.89 Other specified places as the place of occurrence of the external cause; Y99.8 Other external cause status
CPT/HCPCS: 36415; 73630; 73721; 80048; 80053; 80202; 82550; 82962; 83036; 83605; 83880; 84145; 85025; 85651; 87070; 87075; 87077; 87186; 88304; 88311; 93923; 97162; 97166; 97530; 99285; J0690; J1815; J2250; J2543; J2704; J3010; J3370; J3490; J7030

== ENCOUNTER 2024-10-21 09:36 | Emergency (ER) | payer MEDICAID ==
[~2024-10-21] VITALS: Ht 167.6 cm; Wt 74.0 kg
[~2024-10-21 09:36] MED LIST changes: +DOCU-405 PO; -DOCU250C69 PO; +ERGO1250 PO; +GABA-1180 PO; +GLIP1TAB5 PO; +MICO45CR; +NALT50TA6 PO; +TERB250T88 PO; +TIZA-204 PO
[2024-10-21 09:46] VITALS: TEMP 37; O2SAT 100
[2024-10-21 10:08] LABS: HEMATOCRIT. 43.6 % (42.0-52.0); HEMOGLOBIN. 14.3 g/dL (14.0-18.0); MEAN CORPUSCULAR HGB CONC 32.7 g/dL (31.0-37.0); MEAN CORPUSCULAR VOLUME 94.8 fL (80.0-94.0); MEAN PLATELET VOLUME 7.6 fl (7.4-10.4); PLATELET 204 x1000/uL (130-400); RED CELL DISTRIBUTION WIDTH 16.7 % (11.6-14.6); WHITE BLOOD COUNT 9.1 x1000/uL (4.5-11.0)
[2024-10-21 10:16] LABS: CHLORIDE 106 mEq/L (98-107); POTASSIUM 5.9 mEq/L (3.5-5.1); SODIUM 136 mEq/L (136-145)
[2024-10-21 10:17] LABS: CALCIUM 9.2 mg/dL (8.7-10.4); CARBON DIOXIDE 21 mEq/L (21-32)
[2024-10-21 10:22] LABS: CREATININE 1.2 mg/dL (0.6-1.3); GLUCOSE 96 mg/dL (70-105); UREA NITROGEN BLOOD 8 mg/dL (9-23)
[2024-10-21 10:23] LABS: DIFFERENTIAL COMMENT 1
[2024-10-21 11:19] VITALS: BP 144/70; PULSE 66; RESP 17; O2SAT 99
[2024-10-21 13:17] LABS: ANISOCYTOSIS 1+; PLATELET ESTIMATE NORMAL
== END 2024-10-21 11:30 | disposition home or self-care (01) ==
LOC: ER 09:36
DX: Z45.2 Encounter for adjustment and management of vascular access device (principal); Z00.00 Encounter for general adult medical examination without abnormal findings; E11.9 Type 2 diabetes mellitus without complications; M19.90 Unspecified osteoarthritis, unspecified site; Z79.01 Long term (current) use of anticoagulants; Z79.84 Long term (current) use of oral hypoglycemic drugs; Z79.899 Other long term (current) drug therapy; Z86.73 Personal history of transient ischemic attack (TIA), and cerebral infarction without residual deficits
CPT/HCPCS: 36415; 80048; 85025; 99283